=== PATIENT | male | born 1940 | race Caucasian/White ===

== ENCOUNTER 2023-09-26 19:11 | Emergency (ER) | payer OTHER ==
[~2023-09-26] VITALS: Ht 175.3 cm; Wt 102.1 kg
[2023-09-26] MEDS ORDERED: [UNRECOGNIZED DRUG - OTHER] (19:28)
[2023-09-26] MEDS ORDERED: METHYLPREDNISOLONE SOD SUCC 125 MG VIAL IV STA (19:47)
[2023-09-26] MEDS ORDERED: BUDESONIDE 0.5 MG/2 ML AMPUL.NEB IH STA (19:48)
[2023-09-26] MEDS ORDERED: 0.9 % SODIUM CHLORIDE 1,000 ML IV STA (19:49)
[2023-09-26] MEDS ORDERED: CEFTRIAXONE SODIUM 1,000 MG VIAL IM STA (19:50)
[2023-09-26] MEDS ORDERED: GUAIFENESIN 200 MG/10 ML BLIST.PACK PO STA (19:52)
[2023-09-26] MEDS ORDERED: LEVALBUTEROL HCL 1.25 MG/3 ML SOLUTION IH SCH (20:00)
[2023-09-26 20:42] LABS: HEMATOCRIT 40.6 % (39.0-48.0); MEAN CELL VOLUME 94.3 fL (80.0-100.00); MEAN CORPUSCULAR HEMOGLOBIN 32.4 pg (27.00-32.0); MEAN CORPUSCULAR HGB CONC 34.4 g/dl (32.0-36.0); PLATELET COUNT 216 K/uL (150-450); RED CELL DISTRIBUTION WIDTH 14.1 % (11.5-14.5)
[2023-09-26 21:30] LABS: ABG PH 7.515 (7.35-7.45); ABG PO2 75.2 mmHg (80-100); ABG pCO2 27.4 mmHg (35-45); BASE EXCESS 0.1 mmol/l; SaO2 96.4 %
[2023-09-26 21:31] LABS: BICARBONATE 21.6 mmol/l (23-25); Tco2 22.4 mmol/l; allen test SATISFACTORY; o2 21 %; puncture site RADIAL LEFT
== END 2023-09-26 22:22 | disposition home or self-care (01) ==
LOC: ER 19:11
PROVIDERS: General Practice
DX: J40 Bronchitis, not specified as acute or chronic (principal); Z20.822 Contact with and (suspected) exposure to COVID-19
CPT/HCPCS: 36415; 71046; 82803; 94640; 96365; 96366; 96372; 99284; J0696; J2930; J3490